=== PATIENT | female | born 1990 | race Caucasian/White ===

== ENCOUNTER 2017-01-31 16:41 | Emergency (ER) | payer BC ==
--- NOTE | 2017-02-03 17:50 | ER ---
ADMIT: 01/31/2017 RM/LOC: ER [facility] MR#: [id number] [place], [place] [id number] ALEX MAURER [address] [place] [address] Emergency Room Report SEX: F AGE: 26 : 1990 DATE: 01/31/2017 ADDENDUM: This patient comes to the ER because she has had a severe headache all day today. She is nauseated and vomiting, very sensitive to light and sound. This is a normal type headache for her. IV of normal saline was started. She was given a liter of bolus, Toradol 30 mg IM, and Reglan 10 mg IV. When I went to re-evaluate her, she was feeling quite a bit better and most of her symptoms were gone. We will have her follow up with her primary as needed. Continue to push fluids. CHRISTA Pride / Rock Garcia MD / modl JOB #: [id number] CC: Rock Garcia MD, Attending Physician Chandni Mcmullen, Family Physician
== END 2017-01-31 18:52 | disposition home or self-care (01) ==
LOC: ER 16:41
DX: R51 Headache (principal); Z98.51 Tubal ligation status; Z79.899 Other long term (current) drug therapy